=== PATIENT | male | born 1995 | race Caucasian/White ===

== ENCOUNTER 2020-07-29 16:17 | Emergency (ER) | payer MEDICAID, OTHER ==
[~2020-07-29] VITALS: Ht 175.3 cm; Wt 99.5 kg
[~2020-07-29 16:17] MED LIST: ONDA8TAB6 PO; ONDA8TAB9 PO
[2020-07-29] MEDS ORDERED: LIDOcaine Viscous 15ml cup MM ONE (16:40)
[2020-07-29] MEDS ORDERED: normal saline 1000ML IV soln IVB ONE (16:40)
[2020-07-29] MEDS ORDERED: pantoprazole 40 MG vial IV ONE (16:40)
[2020-07-29] MEDS ORDERED: mag hydrox/Alum hydrox/simeth 30ml oral suspension PO ONE (16:40)
[2020-07-29] MEDS ORDERED: ondansetron/PF 4mg/2ml inj IV ONE (16:40)
[2020-07-29] MEDS ORDERED: iohexol 300mg/ml 100ml inj. ONE (16:52)
[2020-07-29 16:57] LABS: BASOPHILS % (AUTO) 0.3 % (0-1); EOSINOPHILS % (AUTO) 0 % (0-6); HEMATOCRIT 45.5 % (42.0-52.0); HEMOGLOBIN 15.6 g/dl (14.0-17.9); LYMPHOCYTES % (AUTO) 6.2 % (21-51); MEAN CORPUSCULAR HEMOGLOBIN 30.4 PG (27.0-31.0); MEAN CORPUSCULAR HGB CONC 34.3 g/dL (33.0-36.5); MEAN CORPUSCULAR VOLUME 88.5 FL (78-98); MEAN PLATELET VOLUME 9.8 FL (7.4-10.4); MONOCYTES # (AUTO) 0.5 X10'3 (0-0.9); MONOCYTES % (AUTO) 2.9 % (2-12); NEUTROPHILS # (AUTO) 14.3 X10'3 (1.8-7.7); NEUTROPHILS % (AUTO) 90.6 % (42-75); PLATELET COUNT 240 X10'3 (140-440); RED BLOOD COUNT 5.14 X10'6 (4.70-6.10); RED CELL DISTRIBUTION WIDTH 12.9 % (11.5-14.5); WHITE BLOOD COUNT 15.8 X10'3 (4.5-11.0)
[2020-07-29 17:07] LABS: ALANINE AMINOTRANSFERASE 38 U/L (12-78); ALBUMIN 4.3 G/DL (3.4-5.0); ALBUMIN/GLOBULIN RATIO 0.9 (1.1-1.5); ALKALINE PHOSPHATASE 117 IU/L (46-116); ANION GAP 11 (8-16); ASPARTATE AMINO TRANSFERASE 18 U/L (10-37); BILIRUBIN,TOTAL 0.8 MG/DL (0.1-1.0); BLOOD UREA NITROGEN 18 MG/DL (7-18); BUN/CREATININE RATIO 15.1 (5.4-32.0); CHLORIDE 102 MMOL/L (99-107); CREATININE 1.19 MG/DL (0.60-1.10); GLUCOSE 153 MG/DL (70-104); LIPASE 60 U/L (73-393); POTASSIUM 3.7 MMOL/L (3.5-5.1); SODIUM 140 MMOL/L (135-145); TOTAL CARBON DIOXIDE 27.2 MMOL/L (24-32); TOTAL PROTEIN 8.9 G/DL (6.4-8.2); eGFR 73 ML/MIN
[2020-07-29] MEDS ORDERED: OMEP40CA21 PO (17:55)
[2020-07-29] MEDS ORDERED: ONDA4TAB6 PO (17:55)
[2020-07-29 18:54] VITALS: BP 131/76
== END 2020-07-29 18:57 | disposition home or self-care (01) ==
LOC: ER 16:17
DX: K29.00 Acute gastritis without bleeding (principal); R10.84 Generalized abdominal pain; K59.00 Constipation, unspecified; F12.90 Cannabis use, unspecified, uncomplicated; Z79.899 Other long term (current) drug therapy
CPT/HCPCS: 36415; 74177; 80053; 83690; 85025; 96361; 96374; 96375; 99285; C9113; J2405; J7030; Q9967

== ENCOUNTER 2020-07-31 08:46 | Emergency (ER) | payer MEDICAID, OTHER ==
[~2020-07-31] VITALS: Ht 177.8 cm; Wt 99.3 kg
[~2020-07-31 08:46] MED LIST changes: +OMEP40CA21 PO; +ONDA4TAB6 PO
[2020-07-31 09:25] LABS: BASOPHILS # (AUTO) 0.1 X10'3 (0-0.2); BASOPHILS % (AUTO) 0.5 % (0-1); EOSINOPHILS % (AUTO) 0.3 % (0-6); HEMATOCRIT 45.8 % (42.0-52.0); HEMOGLOBIN 15.7 g/dl (14.0-17.9); LYMPHOCYTES # (AUTO) 2.1 X10'3 (1.1-4.8); LYMPHOCYTES % (AUTO) 12.7 % (21-51); MEAN CORPUSCULAR HEMOGLOBIN 30.5 PG (27.0-31.0); MEAN CORPUSCULAR HGB CONC 34.2 g/dL (33.0-36.5); MEAN CORPUSCULAR VOLUME 89.1 FL (78-98); MEAN PLATELET VOLUME 9.5 FL (7.4-10.4); MONOCYTES # (AUTO) 0.8 X10'3 (0-0.9); NEUTROPHILS # (AUTO) 13.4 X10'3 (1.8-7.7); NEUTROPHILS % (AUTO) 81.5 % (42-75); PLATELET COUNT 242 X10'3 (140-440); RED BLOOD COUNT 5.14 X10'6 (4.70-6.10); WHITE BLOOD COUNT 16.5 X10'3 (4.5-11.0)
[2020-07-31 09:45] LABS: ALANINE AMINOTRANSFERASE 40 U/L (12-78); ALBUMIN 4.1 G/DL (3.4-5.0); ALBUMIN/GLOBULIN RATIO 0.9 (1.1-1.5); ALKALINE PHOSPHATASE 106 IU/L (46-116); ANION GAP 12 (8-16); ASPARTATE AMINO TRANSFERASE 17 U/L (10-37); BILIRUBIN,TOTAL 0.6 MG/DL (0.1-1.0); BLOOD UREA NITROGEN 23 MG/DL (7-18); CALCIUM 9.6 MG/DL (8.5-10.1); CHLORIDE 105 MMOL/L (99-107); CREATININE 1.15 MG/DL (0.60-1.10); GLUCOSE 148 MG/DL (70-104); LIPASE 394 U/L (73-393); POTASSIUM 3.4 MMOL/L (3.5-5.1); SODIUM 139 MMOL/L (135-145); TOTAL CARBON DIOXIDE 22.1 MMOL/L (24-32); TOTAL PROTEIN 8.5 G/DL (6.4-8.2); eGFR 76 ML/MIN
[2020-07-31] MEDS ORDERED: proCHLORperazine 10 MG/2 ml inj IV ONE (10:30)
[2020-07-31] MEDS ORDERED: pantoprazole 40 MG vial IV ONE (10:30)
[2020-07-31] MEDS ORDERED: dextrose 5%-normal saline 1,000 ML IV ONE (10:30)
[2020-07-31] MEDS ORDERED: famotidine/PF 10 mg/ml inj IV ONE (10:30)
[2020-07-31] MEDS ORDERED: diphenhydrAMINE 50 mg/ml inj IV ONE (10:30)
[2020-07-31] MEDS ORDERED: ketorolac trometh. 30mg/ml inj. IV ONE (10:30)
[2020-07-31] MEDS ORDERED: ondansetron/PF 4mg/2ml inj IV ONE (10:30)
[2020-07-31] MEDS ORDERED: metoclopramide 5 mg/ml inj IV ONE (11:35)
[2020-07-31] MEDS ORDERED: PANT-47 PO (11:37)
[2020-07-31] MEDS ORDERED: ONDA4TAB6 PO (11:37)
[2020-07-31] MEDS ORDERED: LIDOcaine Viscous 15ml cup MM ONE (11:40)
[2020-07-31] MEDS ORDERED: mag hydrox/Alum hydrox/simeth 30ml oral suspension PO ONE (11:40)
[2020-07-31] MEDS ORDERED: normal saline 1000ml 1,000 ML IV ONE (11:45)
[2020-07-31 12:42] VITALS: BP 152/88
== END 2020-07-31 12:45 | disposition home or self-care (01) ==
LOC: ER 08:46
DX: R11.2 Nausea with vomiting, unspecified (principal); R10.9 Unspecified abdominal pain; F12.10 Cannabis abuse, uncomplicated; Z79.899 Other long term (current) drug therapy
CPT/HCPCS: 36415; 80053; 83690; 84145; 85025; 96361; 96374; 96375; 99285; C9113; J0780; J1200; J1885; J2405; J2765; J3490; J7030

== ENCOUNTER 2022-10-29 09:42 | Inpatient (IN) | payer MEDICAID, OTHER ==
[~2022-10-29] VITALS: Ht 175.3 cm; Wt 92.7 kg
[~2022-10-29 09:42] MED LIST changes: -OMEP40CA21 PO; +PANT-47 PO
[2022-10-29 10:27] LABS: BILIRUBIN,URINE MODERATE (Neg); CLARITY,URINE CLOUDY (Clear); COLOR,URINE YELLOW (Yellow); GLUCOSE, URINE NEGATIVE (Neg); KETONES,URINE 15 mg/dl (Neg); LEUKOCYTE ESTERASE ,URINE NEGATIVE (Neg); NITRITES, URINE NEGATIVE (Neg); OCCULT BLOOD,URINE TRACE-INTACT (Neg); PROTEIN,URINE 30 mg/dl (Neg); UROBILINOGEN,URINE 0.2 E.U/dL (0.2-1.0)
[2022-10-29 10:28] LABS: UA COLLECTION TYPE CLN CATCH MIDSTREAM
[2022-10-29 10:50] LABS: CAL OXALATE CRYSTALS 3+ /HPF (NEGATIVE)
[2022-10-29 10:51] LABS: AMORPHOUS URATES 2+; BACTERIA,URINE FEW /HPF (Neg); HYALINE CASTS 0-3 /LPF (NEGATIVE); RBC,URINE 0-2 /HPF (0-2); SQUAMOUS EPITHELIAL CELL,UR FEW /LPF (FEW); WBC,URINE 0-4 /HPF (0-4)
[2022-10-29 10:52] LABS: FINE GRANULAR CAST 0-3 /LPF (NEGATIVE); WAXY CASTS,URINE 0-3 /LPF (NEGATIVE)
[2022-10-29 10:53] LABS: COARSE GRANULAR CAST 0-3 /LPF (NEGATIVE); RENAL CELLS, URINE FEW /HPF; TRANSITIONAL EPI CELLS,URINE FEW /HPF
[2022-10-29 10:59] LABS: BASOPHILS # (AUTO) 0.1 X10'3 (0-0.2); BASOPHILS % (AUTO) 0.3 % (0-1); EOSINOPHILS % (AUTO) 0.1 % (0-6); HEMATOCRIT 51.7 % (42.0-52.0); HEMOGLOBIN 17.2 g/dl (14.0-17.9); LYMPHOCYTES # (AUTO) 2.4 X10'3 (1.1-4.8); LYMPHOCYTES % (AUTO) 11.9 % (21-51); MEAN CORPUSCULAR HEMOGLOBIN 29.8 PG (27.0-31.0); MEAN CORPUSCULAR HGB CONC 33.2 g/dL (33.0-36.5); MEAN CORPUSCULAR VOLUME 89.7 FL (78-98); MEAN PLATELET VOLUME 9.8 FL (7.4-10.4); MONOCYTES # (AUTO) 1.6 X10'3 (0-0.9); MONOCYTES % (AUTO) 7.8 % (2-12); NEUTROPHILS # (AUTO) 16.4 X10'3 (1.8-7.7); NEUTROPHILS % (AUTO) 79.9 % (42-75); PLATELET COUNT 317 X10'3 (140-440); RED BLOOD COUNT 5.76 X10'6 (4.70-6.10); RED CELL DISTRIBUTION WIDTH 13.5 % (11.5-14.5); WHITE BLOOD COUNT 20.4 X10'3 (4.5-11.0)
[2022-10-29 11:28] LABS: ALANINE AMINOTRANSFERASE 24 U/L (12-78); ALBUMIN 5.1 G/DL (3.4-5.0); ALKALINE PHOSPHATASE 122 IU/L (46-116); ANION GAP 16 (8-16); ASPARTATE AMINO TRANSFERASE 20 U/L (10-37); BILIRUBIN,TOTAL 0.8 MG/DL (0.1-1.0); BLOOD UREA NITROGEN 44 MG/DL (7-18); BUN/CREATININE RATIO 8.9 (10.0-20.0); CALCIUM 10.9 MG/DL (8.5-10.1); CHLORIDE 96 MMOL/L (99-107); CREATININE 4.92 MG/DL (0.60-1.10); GLUCOSE 126 MG/DL (70-104); LIPASE 96 U/L (73-393); POTASSIUM 4.1 MMOL/L (3.5-5.1); SODIUM 136 MMOL/L (135-145); TOTAL CARBON DIOXIDE 24.5 MMOL/L (24-32); eCRCL 22 ML/MIN; eGFR 14 ML/MIN
[2022-10-29] MEDS ORDERED: metoclopramide 5 mg/ml inj IV ONE (13:30)
[2022-10-29] MEDS ORDERED: LORazepam 2 mg/ml vial IV ONE (13:30)
[2022-10-29] MEDS ORDERED: diphenhydrAMINE 50 mg/ml inj IV ONE (13:30)
[2022-10-29] MEDS ORDERED: normal saline 1000ML IV soln IVB ONE ×2 (13:30)
[2022-10-29] MEDS ORDERED: potassium Cl 20 mEq SR tablet PO PRN ×2 (14:50)
[2022-10-29] MEDS ORDERED: magnesium 4gm in 100ml NS 100 ML IV PRN (14:50)
[2022-10-29] MEDS ORDERED: morphine 2 MG/ML inj. syringe IV PRN (14:50)
[2022-10-29] MEDS ORDERED: mag hydrox/Alum hydrox/simeth 30ml oral suspension PO PRN (14:50)
[2022-10-29] MEDS ORDERED: acetaminophen 325mg tablet PO PRN ×2 (14:50)
[2022-10-29] MEDS ORDERED: potassium Cl 40MEQ/1/2NS 520ml 520 ML IV PRN (14:50)
[2022-10-29] MEDS ORDERED: magnesium 2GM in 50ml NS 50 ML IV PRN (14:50)
[2022-10-29] MEDS ORDERED: magnesium hydroxide 30ml (MOM) UD suspension PO PRN (14:50)
[2022-10-29] MEDS: diphenhydrAMINE 50 mg/ml inj IV SCH (15:40)
[2022-10-29] MEDS: normal saline 1000ml 1,000 ML IV SCH ×2 (15:41→22:04)
[2022-10-29] MEDS ORDERED: pantoprazole 40MG/NS 100ML BAG 100 ML IV SCH (16:00)
[2022-10-29] MEDS ORDERED: FLUO10CA28 PO (16:46)
[2022-10-29] MEDS ORDERED: OMEP40CA21 PO (16:46)
[2022-10-29] MEDS ORDERED: OMEP20CA15 PO (16:55)
[2022-10-29] MEDS: K and/or MAG REPLACEMENT MC SCH (19:06)
[2022-10-29] MEDS: morphine 2 MG/ML inj. syringe IV PRN (19:21)
[2022-10-29] MEDS: docusate sod 100mg capsule PO SCH (20:32)
[2022-10-29] MEDS: diatr meglu/diatrizoate 30ml oral sol.-(3 dose) bottle PO SCH (20:32)
[2022-10-29] MEDS: metoclopramide 5 mg/ml inj IV PRN (20:58)
[2022-10-29] MEDS: pantoprazole 40MG/NS 100ML BAG 100 ML IV SCH (22:16)
[2022-10-30] MEDS: pantoprazole 40MG/NS 100ML BAG 100 ML IV SCH ×5 (03:02→22:27)
[2022-10-30] MEDS: diatr meglu/diatrizoate 30ml oral sol.-(3 dose) bottle PO SCH ×2 (07:55→21:00)
[2022-10-30] MEDS: docusate sod 100mg capsule PO SCH ×2 (08:00→20:00)
[2022-10-30] MEDS: K and/or MAG REPLACEMENT MC SCH ×2 (08:00→20:00)
[2022-10-30] MEDS: FLUoxetine 10mg capsule PO SCH (08:00)
[2022-10-30] MEDS: diphenhydrAMINE 50 mg/ml inj IV SCH ×3 (08:11→16:07)
[2022-10-30] MEDS: metoclopramide 5 mg/ml inj IV PRN (08:11)
[2022-10-30] MEDS: ondansetron/PF 4mg/2ml inj IV PRN ×2 (08:11→11:35)
[2022-10-30] MEDS: morphine 2 MG/ML inj. syringe IV PRN (08:53)
[2022-10-30] MEDS ORDERED: LORazepam 2 mg/ml vial IV PRN (09:35)
[2022-10-30] MEDS ORDERED: HYDROmorphone inj. 0.5 MG/0.5 ML DISP.SYRIN IV PRN (09:35)
[2022-10-30] MEDS ORDERED: HYDROmorphone 1 mg/ml syringe IV PRN (09:35)
[2022-10-30 10:17] LABS: BASOPHILS # (AUTO) 0.1 X10'3 (0-0.2); BASOPHILS % (AUTO) 0.4 % (0-1); EOSINOPHILS % (AUTO) 0.1 % (0-6); HEMATOCRIT 45.7 % (42.0-52.0); HEMOGLOBIN 15.7 g/dl (14.0-17.9); LYMPHOCYTES # (AUTO) 1.6 X10'3 (1.1-4.8); LYMPHOCYTES % (AUTO) 9.5 % (21-51); MEAN CORPUSCULAR HEMOGLOBIN 30.4 PG (27.0-31.0); MEAN CORPUSCULAR HGB CONC 34.3 g/dL (33.0-36.5); MEAN CORPUSCULAR VOLUME 88.6 FL (78-98); MEAN PLATELET VOLUME 9.5 FL (7.4-10.4); MONOCYTES % (AUTO) 5.8 % (2-12); NEUTROPHILS # (AUTO) 14.1 X10'3 (1.8-7.7); NEUTROPHILS % (AUTO) 84.2 % (42-75); PLATELET COUNT 247 X10'3 (140-440); RED BLOOD COUNT 5.17 X10'6 (4.70-6.10); RED CELL DISTRIBUTION WIDTH 13.1 % (11.5-14.5); WHITE BLOOD COUNT 16.7 X10'3 (4.5-11.0)
[2022-10-30 10:38] LABS: ALANINE AMINOTRANSFERASE 21 U/L (12-78); ALBUMIN 4.2 G/DL (3.4-5.0); ALKALINE PHOSPHATASE 101 IU/L (46-116); ANION GAP 14 (8-16); ASPARTATE AMINO TRANSFERASE 23 U/L (10-37); BLOOD UREA NITROGEN 43 MG/DL (7-18); CHLORIDE 104 MMOL/L (99-107); CREATININE 1.79 MG/DL (0.60-1.10); GLUCOSE 120 MG/DL (70-104); MAGNESIUM 2.3 MG/DL (1.5-2.4); POTASSIUM 3.8 MMOL/L (3.5-5.1); SODIUM 139 MMOL/L (135-145); TOTAL CARBON DIOXIDE 21.2 MMOL/L (24-32); TOTAL PROTEIN 8.4 G/DL (6.4-8.2); eCRCL 61 ML/MIN; eGFR 45 ML/MIN
[2022-10-30] MEDS: normal saline 1000ml 1,000 ML IV SCH ×2 (11:36→20:50)
--- NOTE | 2022-10-30 11:41 | NUR ---
Received report from RYLEE Villa, from ED.
[2022-10-30 12:01] VITALS: BP 154/88; PULSE 66; RESP 23; TEMP 98.6; O2SAT 100
[2022-10-30] MEDS ORDERED: FLUoxetine 10mg capsule PO ONE (16:05)
[2022-10-30] MEDS ORDERED: CefTRIAXone/D5W-Rocephin 1gm 50 ML IV ONE (16:55)
--- NOTE | 2022-10-30 17:30 | NUR ---
efaxed MRI screening form.
--- NOTE | 2022-10-30 17:52 | NUR ---
technology project manager wheeling pt down to MRI. NAD
[2022-10-30 18:00] VITALS: BP 114/75; PULSE 80; RESP 18; TEMP 98.1; O2SAT 100
[2022-10-30 20:00] VITALS: RESP 18; O2SAT 100
[2022-10-30 22:00] VITALS: BP 133/78; PULSE 77; RESP 14; TEMP 97.9; O2SAT 97
[2022-10-31] VITALS (8 sets, daily range): BP systolic 119–141; BP diastolic 57–86; PULSE 55–68; RESP 16–20; TEMP 97.4–97.5; O2SAT 96–99
[2022-10-31] MEDS: pantoprazole 40MG/NS 100ML BAG 100 ML IV SCH ×3 (03:12→13:00)
[2022-10-31 04:39] LABS: BASOPHILS # (AUTO) 0.1 X10'3 (0-0.2); BASOPHILS % (AUTO) 0.6 % (0-1); EOSINOPHILS # (AUTO) 0.1 X10'3 (0-0.9); EOSINOPHILS % (AUTO) 0.5 % (0-6); HEMATOCRIT 41.8 % (42.0-52.0); HEMOGLOBIN 14.1 g/dl (14.0-17.9); LYMPHOCYTES # (AUTO) 2.7 X10'3 (1.1-4.8); LYMPHOCYTES % (AUTO) 25.1 % (21-51); MEAN CORPUSCULAR HEMOGLOBIN 30.4 PG (27.0-31.0); MEAN CORPUSCULAR HGB CONC 33.8 g/dL (33.0-36.5); MEAN CORPUSCULAR VOLUME 90.1 FL (78-98); MEAN PLATELET VOLUME 9.7 FL (7.4-10.4); MONOCYTES # (AUTO) 0.9 X10'3 (0-0.9); NEUTROPHILS # (AUTO) 7.1 X10'3 (1.8-7.7); NEUTROPHILS % (AUTO) 65.8 % (42-75); PLATELET COUNT 215 X10'3 (140-440); RED BLOOD COUNT 4.64 X10'6 (4.70-6.10); RED CELL DISTRIBUTION WIDTH 12.9 % (11.5-14.5); WHITE BLOOD COUNT 10.7 X10'3 (4.5-11.0)
[2022-10-31 05:10] LABS: ALANINE AMINOTRANSFERASE 19 U/L (12-78); ALBUMIN 3.3 G/DL (3.4-5.0); ALBUMIN/GLOBULIN RATIO 0.9 (1.1-1.5); ALKALINE PHOSPHATASE 77 IU/L (46-116); ANION GAP 8 (8-16); ASPARTATE AMINO TRANSFERASE 18 U/L (10-37); BILIRUBIN,TOTAL 0.5 MG/DL (0.1-1.0); BLOOD UREA NITROGEN 28 MG/DL (7-18); BUN/CREATININE RATIO 23.9 (10.0-20.0); CHLORIDE 107 MMOL/L (99-107); CREATININE 1.17 MG/DL (0.60-1.10); GLUCOSE 95 MG/DL (70-104); POTASSIUM 4.1 MMOL/L (3.5-5.1); SODIUM 139 MMOL/L (135-145); TOTAL CARBON DIOXIDE 24.5 MMOL/L (24-32); TOTAL PROTEIN 6.8 G/DL (6.4-8.2); eCRCL 93 ML/MIN; eGFR 74 ML/MIN
--- NOTE | 2022-10-31 06:13 | NUR ---
Problems reprioritized. Patient report given, questions answered & plan of care reviewed with Ashu MCKEE. Addendum: 10/31/22 at 0617 by Pat Liz RN Amended: Links added.
[2022-10-31] MEDS: ondansetron/PF 4mg/2ml inj IV PRN (06:46)
[2022-10-31] MEDS: normal saline 1000ml 1,000 ML IV SCH ×2 (06:50→16:50)
--- NOTE | 2022-10-31 07:03 | NUR ---
Patient in room ORTHO 4013. I have received report from Pat MCKEE and had the opportunity to ask questions and assume patient care.
[2022-10-31] MEDS ORDERED: CefTRIAXone/D5W-Rocephin 1gm 50 ML IV SCH (08:00)
[2022-10-31] MEDS: K and/or MAG REPLACEMENT MC SCH (08:00)
[2022-10-31] MEDS ORDERED: fentaNYL/PF 50MCG/1 ML 2ML syringe ONE (09:35)
[2022-10-31] MEDS ORDERED: MIDAZolam 1 MG/ML 5ML VIAL ONE (09:36)
[2022-10-31] MEDS ORDERED: LIDOcaine Viscous 15ml cup ONE (09:36)
[2022-10-31] MEDS: FLUoxetine 10mg capsule PO SCH (11:08)
[2022-10-31] MEDS: diphenhydrAMINE 50 mg/ml inj IV SCH ×3 (11:08→16:00)
[2022-10-31] MEDS: docusate sod 100mg capsule PO SCH (11:08)
--- NOTE | 2022-10-31 13:43 | NUR ---
Malnutrition consult: Pt reports 14-23 lb wt loss with decreased appetite/PO intake per malnutrition risk screen with RN. Pt seen at bedside, states UBW 200-230 lbs and reports most recent wt was 204 lbs taken Wednesday or Wednesday at [facility]. Despite issues with N/V and reports of low appetite for a couple of days pt denies any wt loss. No visible fat or muscle wasting appreciated. Pt with no documented decrease in muscle strength or edema. Pt currently lacks a minimum of two criteria for malnutrition though will continue to monitor s/s of malnutrition. Pt reports appetite is improving, lunch tray visible during RD visit noted 100% PO intake of rice and chicken. Pt denies food allergies though does request no acidic food, tomato products, or spicy food d/t Mistry's esophagus, d/w dietary. Pt denies any issues chewing or swallowing. RD contact information provided and pt encouraged to reach out if needed. Will continue to follow. Addendum: 10/31/22 at [address] Amended: Links added.
[2022-10-31 15:08] LABS: HBSAG SCREEN Negative (Negative); HEP B CORE AB, IGM Negative (Negative); HEP B CORE AB, TOT Negative (Negative)
[2022-10-31] MEDS ORDERED: ONDA4TAB12 PO (16:48)
--- NOTE | 2022-10-31 17:30 | NUR ---
Patient discharged home with family, education on follow up and new medications were done. Patient was taken out in wheelchair after IV taken out at discharge.
== END 2022-10-31 17:30 | disposition home or self-care (01) | DRG 391 ==
LOC: ER 09:43 → ED HOLD 14:58 → ORTHO 4S 10-30 11:58 → UNDODISIN 10-30 13:30
PROVIDERS: ADMIT Family Medicine; ATTEND Family Medicine
PROC: 0DB98ZX Excision of Duodenum, Via Natural or Artificial Opening Endoscopic, Diagnostic (ICD-10-PCS; principal; 2022-10-31)
PROC: 0DB68ZX Excision of Stomach, Via Natural or Artificial Opening Endoscopic, Diagnostic (ICD-10-PCS; 2022-10-31)
DX: K21.00 Gastro-esophageal reflux disease with esophagitis, without bleeding (principal); N17.0 Acute kidney failure with tubular necrosis; F32.A Depression, unspecified; D72.829 Elevated white blood cell count, unspecified; F12.90 Cannabis use, unspecified, uncomplicated; E86.9 Volume depletion, unspecified; R11.2 Nausea with vomiting, unspecified; Z87.891 Personal history of nicotine dependence
CPT/HCPCS: 36415; 43239; 70551; 74176; 80053; 81001; 83690; 83735; 84145; 85025; 86704; 86705; 87081; 87340; 96374; 96375; 99152; 99285; A4620; C9113; G0378; J0696; J1170; J1200; J2060; J2250; J2270; J2405; J2765; J3010; J7030; Q9963

== ENCOUNTER 2024-10-26 14:22 | Emergency (ER) | payer SELFPAY ==
[~2024-10-26] VITALS: Ht 175.3 cm; Wt 90.9 kg
[~2024-10-26 14:22] MED LIST changes: +FLUO10CA28 PO; +OMEP20CA15 PO; +ONDA-243 PO; -ONDA4TAB6 PO; -ONDA8TAB6 PO; -ONDA8TAB9 PO; -PANT-47 PO
[2024-10-26 14:26] VITALS: TEMP 98.8
--- NOTE | 2024-10-26 14:36 | ELECTROCARDIOGRAPH REPORT ---
[facility] Test Date: 2024-10-26 Test Time: 14:34:54 Pat Name: MADY STEELE Department: ORTHO/NEURO Room: Gender: M Medical Record Assistant: : 1995 Requested By: TWAN WREN Order Number: [id number] Reading MD: Measurements Intervals Nichols Rate: 64 P: -17 ID: [id number] QRS: 77 QRSD: 94 T: 51 QT: 405 QTc: 418 Interpretive Statements Sinus rhythm LVH by voltage Please click the below link to view image of tracing.
--- NOTE | 2024-10-26 14:52 | Physician Documentation ---
History of Present Illness Chief Complaint: Abdominal Pain Stated Complaint: KIDNEY PAIN Time Seen by MD: 14:47 Primary Medical Doctor: [facility] HPI This is a 29-year-old male who presents for evaluation of epigastric abdominal pain, nausea vomiting for the last two days. Over 15 episodes of emesis. The particular palliating or aggravating factors, did not attempt to treat it. This has not happened in the past. No known infectious exposure. Reports that he has not had any flatus. Denies diarrhea. Denies any chest pain. Reports some difficulty breathing secondary to pain. Reports bilateral flank pain and worries that in his kidneys are failing because he has a history of kidney failure in the past and this feels similar. He does use marijuana occasionally, drinks occasionally, does not smoke, does not do drugs. Medication Reconciliation Allergies: Coded Allergies: No Known Allergies (Unverified , 06/15/14) Scheduled Fluoxetine Hcl (Prozac), 1 CAP PO DAILY, (Reported) Omeprazole (Omeprazole), 1 CAP PO DAILY, (Reported) Scheduled PRN ONDANSETRON ODT 4mg tablet (Ondansetron Odt), 4 MG PO Q6H PRN for nausea/vomiting Past Medical History Past Medical History: *GI/HEPATOBILIARY*, Pancreatitis Past Surgical History: noncontributory Patient History: FHx: depression FATHER Alcohol Use: None Drug Use: marijuana Lives with: Spouse, Family Lives In: Home Occupation: employed Review of Systems ROS 10 point review of systems was performed and unless noted above in HPI is negative for acute process/complaint. Physical Exam Vital Signs: Temperature: 98.8, Source: Oral, Heart Rate: 77, Respiratory Rate: 18, BP: 163/88, Pulse Oximetry: 95, Weight: 90.910 Oxygen Flow Rate: 0 Physical Exam GENERAL: Awake, alert, oriented, GCS 15, no apparent distress, non-toxic appearing, answers questions, follows commands appropriately. Examined in bed six, accompanied by father HEENT: Atraumatic, normocephalic, pupils equal, extraocular muscles intact, sclerae anicteric, mucus membranes moist, oropharynx is clear, no stridor. NECK: supple, full active range of motion, trachea midline, no thyromegaly, no lymphadenopathy, no JVD. CARDIOVASCULAR: regular rate/rhythm, no murmurs/gallops/rubs, Pulses are 2+ in all extremities and symmetric. Capillary refill less than 2 seconds. PULMONARY: Nonlabored, good air movement ,no respiratory distress, speaking in full sentences, clear to auscultation bilaterally, no wheezing, no ronchi, no rales, no accessory muscle use. GASTROINTESTINAL: Soft, diffuse abdominal tenderness, non-distended, normal active bowel sounds, no organomegaly, no pulsatile masses, no CVA tenderness. NEUROLOGIC: Lucid with normal mental status. Normal facial symmetry. Moves all extremities symmetrically and with purpose. No truncal ataxia. Speech is fluid without evidence of dysarthria or aphasia, no focal deficits appreciated. MUSCULOSKELETAL: There is full range of motion of all extremities. There is no joint pain or joint swelling or joint erythema. There is no muscle pain or tenderness or swelling. EXTREMITIES: warm, well-perfused, no cyanosis, no clubbing, no edema, no acute deformities. Skin: warm, dry, no rashes or lesions, no jaundice, no petechiae orpurpura. No ecchymosis. PSYCHIATRIC: Normal affect, normal insight, normal concentration. Focused exam: [] No guarding or rebound Progress Results/Orders Results/Orders Vital Signs 10/26/24 14:26 Temp 98.8 Pulse 77 Resp 18 B/P (MAP) 163/88 Pulse Ox 95 O2 Flow Rate 0 EKG/XRAY/CT/US/VASC/MRI EKG : Additional Comment EKG was obtained and interpreted by myself shows sinus rhythm of 64, normal ME interval, narrow QRS, no QT prolongation, normal axis, no STEMI. Medical Decision Making Findings Facility Status: ED Holds, [facility] process The plan was discussed with the patient, who demonstrates clear understanding of the plan and is in agreement with the plan unless otherwise noted in the chart. All questions have been answered, all concerns were addressed unless otherwise documented. I was available throughout their ED stay for frequent reassessment and questions. Differential Diagnoses (considered and possible or likely): Differential diagnosis considered includes acute appendicitis, acute cholecystitis, pancreatitis, gastritis, PUD, diverticulitis, mesenteric ischemia, abdominal aortic aneurysm, bowel obstruction, enteritis, colitis, fecal impaction, volvulus, IBS, inflammatory bowel disease, specific food intolerance, pe ritonitis, perforated viscous, malignancy, UTI, abscess, and abdominal pain NOS. History, physical exam, and workup exclude many of the more serious causes listed above. ??Differential Diagnoses (considered and unlikely, not requiring evaluation currently): [Aortic/great vessels dissection was considered but it is unlikely based on absence of ripping, tearing, migratory chest pain, absence of syncope or focal neurologic deficits, physical examination indicating equal and symmetric pulses.] MDM Data Please see [facility] for the following: Independent Historians and external Records Review. Historian: [Patient] Independent Historians: Father, record review Medication Management: [Reviewed medication list] Social History and determinants: [Reviewed] Please see the body of the note for the following: Any independent interpretations of ECG, imaging studies. All vitals signs/haemodynamics, ordered tests were independently reviewed and interpreted by myself. Nursing triage complaint and vitals reviewed, additional nursing notes were reviewed as available and I agree unless otherwise noted or documented in contradiction in the chart Vital Signs: Independently reviewed Labs: Independently interpreted Imaging: Independently interpreted Old Medical Records: Independently reviewed, see [facility] for relevant summary and information Pulse Oximetry: [97%] interpreted as [normal on room air] by me [Petroleum Sampler: [Regular Rate, Regular rhythm, no ectopy, NSR] reviewed and interpreted by me] Additionally notably showing: [Hemodynamics reviewed. The patient was not febrile, not tachycardic, no evidence of hypotension respiratory distress. CBC shows mild leukocytosis 15.6 with 87% neutrophilic predominance. Normal hemoglobin, normal platelets. Chemistries shows no significant dehydration, e levated glucose but be reactive versus dietary. Does not meet criteria for diabetes. Lipase is normal. Lactic acid is normal. Toxicology shows negative alcohol. Chest x-ray shows no acute cardiopulmonary disease. CT of the abdomen was obtained shows minimal/mild pancolitis. There is a small hiatal hernia. He does have unchanged hypodense hepatic lesion.] Tests considered but not ordered include: [Right upper quadrant ultrasound has been considerably does not appear to be necessary as he has a no transaminitis] Social Determinants of Health Impact: Patient was evaluated in [facility], [facility] [place] to healthcare due to below par ratio of patient to medical providers. [] Comorbid Conditions Impacting Present Evaluation and Care/Treatment: [See list] Management Discussions with other Healthcare Providers: [None] Treatment and Disposition Medication Management (Given or considered): [Pain management, nausea management]. See EMR for details Consideration for Hospitalization/Escalation/Deescalation of Care: Admission for observation has been considered, [however the patient is able to tolerate p.o., their symptoms are controlled, they are able to rely on oral medications, and their chief complaint/diagnosis can be managed on outpatient basis.] ?ED Course:?[No clinical deterioration.] ?Shared decision making:?[Patient is hemodynamically stable for discharge home with follow with their primary care provider. [ ] Specific and cautious return precautions provided and discussed with full understanding. Any incidental findings were also discussed and follow up recommendations given. [] All questions answered. Patient/family were able to verbalize back return precautions. Patient/family agree to plan. Copies of imaging and laboratory studies were provided.] Code status:?FULL Please see the full Electronic Medical Record for full details of nursing documentation, medications list, other records of complete past medical history and conditions, vital signs, laboratory studies, and any radiologic study interpretations by radiologists. Portions of this note were completed using [employer] dictation software and as a result there may exist minor errors in spelling. I have reviewed elements of past family and social history and agree as included in note. Departure Disposition: 01 HOME / SELF CARE / HOMELESS Impression: Primary Impression: Pancolitis Additional Impressions: Abdominal pain Leukocytosis Discharge Instructions: Abdominal Pain (Nonspecific) Additional Instructions: Today you were evaluated for nausea and vomiting as well as diffuse abdominal pain. Your CT showed minimal/mild pancolitis. It is important to remain vigilant. Return to emergency department if you have intractable nausea or vomiting, if your symptoms/pain get worse, if you not able to take her medication list with the medications is not helping. If your symptoms persist for more than seven days you may need antibiotic treatment. Feel free to return to emergency department at any time, we are all his blood to help you. Referrals: NO PRIMARY CARE PROVIDER (PCP) Prescriptions Dicyclomine HCl (Dicyclomine HCl) 20 Mg Tablet 1 TAB PO Q8H for irritable bowel symptoms for 10 Days, #30 TAB 0 Refills Prov: TINO ROWLAND DO 10/26/24 Prochlorperazine Maleate (Compazine) 10 Mg Tablet 1 TAB PO Q6H PRN for nausea/vomiting for 7 Days, #28 TAB 0 Refills Prov: TINO ROWLAND DO 10/26/24 ONDANSETRON ODT 4mg tablet (ONDANSETRON ODT) 4 Mg Tab.rapdis 1 TAB PO Q6H PRN PRN for nausea/vomiting for 4 Days, #16 TAB 0 Refills Prov: TINO ROWLNAD DO 10/26/24 Education Educated: Patient, Family Educated regarding: diagnosis, treatment, prognosis, need for follow up Signature Scribe Signature: No scribe Attestation: This note accurately reflects clinical decisions, work performed by myself, Tino Rowland, TINO SHAW DO Oct 26, 2024 14:52
[2024-10-26 14:56] LABS: MEAN PLATELET VOLUME 9.5 FL (7.4-10.4); RED CELL DISTRIBUTION WIDTH 13.9 % (11.5-14.5)
--- NOTE | 2024-10-26 15:11 | RADIOLOGY REPORT ---
CHEST RADIOGRAPH Indication: CP/Upper Abd Pain Technique: DI CHEST,SINGLE VIEW Comparison: None FINDINGS: The cardiac silhouette is unremarkable. The lungs demonstrate no pulmonary airspace consolidation. Th e pulmonary vasculature is unremarkable. There is no pleural effusion. There is no pneumothorax. IMPRESSION: No pulmonary airspace consolidation.
[2024-10-26 15:13] LABS: CREATININE 1.06 MG/DL (0.60-1.10); TOTAL CARBON DIOXIDE 24.2 MMOL/L (24-32); eCRCL 101 ML/MIN; eGFR 81 ML/MIN
[2024-10-26] MEDS ORDERED: iohexol 300mg/ml 100ml inj. ONE (15:26)
[2024-10-26] MEDS: morphine 4 MG/ML inj SYRINge IV ONE (15:27)
[2024-10-26] MEDS: ondansetron/PF 4mg/2ml inj IV ONE (15:27)
[2024-10-26 15:44] LABS: ETHANOL < 10 MG/DL (<10)
--- NOTE | 2024-10-26 16:13 | RADIOLOGY REPORT ---
Exam: CT CT ABDOMEN PELVIS W/ IV CONTRAST History: abd pain, n/v, no flatus Comparison Study: CT CT ABDOMEN PELVIS on DOS: 10/30/22, CT ABDOMEN PELVIS on DOS: 07/29/20 TECHNIQUE: Multidetector CT of the abdomen pelvis with IV contrast. Axial, coronal and sagittal multi planar reformats were obtained from the axial data set by the technologist. Radiation Dose Information: CT Dose: CTDI volume is 23.91 mGy. Dose-length product is 1218.42 mGy*cm FINDINGS: The lung bases are clear. Partially visualized heart is unremarkable. Mild hepatomegaly. Nonspecific 1.7 cm hypodense hepatic lesion adjacent to the falciform ligament. O therwise, liver, spleen, gallbladder, pancreas and adrenal glands unremarkable. Kidneys, ureters and urinary bladder unremarkable. Prostate is unremarkable. Small hiatal hernia. Fluid-filled mildly distended stomach. Mild wall Thickening of proximal small opal wel loops which is most likely be from inadequate distention. Otherwise, Small bowel loops are unrem arkable. Appendix is unremarkable. Mild Wall thickening of the ascending colon and rectum with minima l wall thickening of the remainder of the colon. No evidence of intraperitoneal free air or free fluid. No evidence of aortic aneurysm or dissection. No significant lymphadenopathy. Tiny fat containing umbilical hernia. Minimal body wall edema. Mild chronic appearing anterior wedge deformity of L2 and T11 with the L2 compression fracture, new from 2022. IMPRESSION: Minimal/mild pancolitis. Small hiatal hernia. 1.7 cm hypodense hepatic lesion ; unchanged from 2020.
[2024-10-26] MEDS ORDERED: DICY20TA17 PO (16:25)
[2024-10-26] MEDS ORDERED: PROC-8 PO (16:25)
[2024-10-26] MEDS ORDERED: ONDA-243 PO (16:25)
[2024-10-26 16:38] VITALS: BP 128/78; PULSE 75; RESP 16; O2SAT 98
== END 2024-10-26 16:42 | disposition home or self-care (01) ==
LOC: ER 14:22
DX: K52.9 Noninfective gastroenteritis and colitis, unspecified (principal); D72.829 Elevated white blood cell count, unspecified; F12.90 Cannabis use, unspecified, uncomplicated; Z79.899 Other long term (current) drug therapy; Z87.19 Personal history of other diseases of the digestive system
CPT/HCPCS: 36415; 71045; 74177; 80053; 80320; 83605; 83690; 85025; 93005; 96374; 96375; 99285; J0780; J2270; J2405; J7030; Q9967